=== PATIENT | male | born 1990 | race African-American/Black ===

== ENCOUNTER 2023-09-27 08:52 | Emergency (ER) | payer SELFPAY ==
[~2023-09-27] VITALS: Ht 188 cm; Wt 118.0 kg
[2023-09-27 08:56] VITALS: O2SAT 95
[2023-09-27] MEDS: ACETAMINOPHEN 325MG TABLET PO ONE (10:04)
[2023-09-27 12:12] VITALS: BP 127/84; PULSE 79; RESP 18; TEMP 98.1
== END 2023-09-27 12:23 | disposition home or self-care (01) ==
LOC: ER 08:52
DX: R51.9 Headache, unspecified (principal); R68.84 Jaw pain; J45.909 Unspecified asthma, uncomplicated
CPT/HCPCS: 70486; 99284